=== PATIENT | female | born 1960 | race Caucasian/White ===

== ENCOUNTER 2021-08-19 10:56 | Emergency (ER) | payer BC ==
[2021-08-19] MEDS: Acetaminophen/HYDROcodone 325-5 MG Tab PO ONE (11:42)
[2021-08-19 13:58] VITALS: BP 106/64; PULSE 68
== END 2021-08-19 12:45 | disposition home or self-care (01) ==
LOC: VM.ED 10:56
DX: S52.532A Colles' fracture of left radius, initial encounter for closed fracture (principal); Z88.0 Allergy status to penicillin; Z91.013 Allergy to seafood; W01.0XXA Fall on same level from slipping, tripping and stumbling without subsequent striking against object, initial encounter; Y93.01 Activity, walking, marching and hiking; Y92.009 Unspecified place in unspecified non-institutional (private) residence as the place of occurrence of the external cause
CPT/HCPCS: 29125; 73090; 99283; A9270